=== PATIENT | female | born 1940 | race Asian ===

== ENCOUNTER 2019-03-04 19:46 | Emergency (ER) | payer MEDICARE, OTHER ==
[~2019-03-04] VITALS: Ht 165.1 cm; Wt 54.4 kg
--- OUTSIDE RECORDS SUMMARY | 2019-03-04 20:19 | XMS REPORT ---
Author Author BLANK JONES [facility] Address [address] [place] [address] Care Team Providers Care Paste Up Artist Name Role Phone BLANK JONES Unavailable PROBLEMS Type Condition ICD9-CM Code [id number] Code Onset Dates Condition Status SNOMED Code Problem Type 2 diabetes mellitus without complication, without long-term current use of insulin E11.9 Active [id number] ALLERGIES No Information ENCOUNTERS Encounter Location Date Diagnosis [facility] [address] [address] Aug, [facility] [address] [address] Aug, [facility] [address] [address] Aug, [facility] [address] [address] Aug, Type 2 diabetes mellitus without complication, without long- term current use of insulin E11.9 and Frequent UTI N39.0 [facility] [address] [address] Jul, Acute cystitis without hematuria N30.00 ; Acute confusion R41.0 and Type 2 diabetes mellitus without complication, without long-term current use of insulin E11.9 [facility] [address] [address] Jul, [facility] [address] [phone] Jul, [facility] [address] [id number] March, Dental examination Z01.20 [facility] [address] [facility] [id number] [place] [address] 07 Aug, 2016 Encounter for immunization Z23 IMMUNIZATIONS No Known Immunizations SOCIAL HISTORY Never Assessed REASON FOR VISIT DM eye exam PLAN OF CARE VITAL SIGNS MEDICATIONS Unknown Medications RESULTS No Results PROCEDURES No Known procedures INSTRUCTIONS MEDICATIONS ADMINISTERED No Known Medications MEDICAL (GENERAL) HISTORY Type Description Date Medical History diabetes II Surgical History appendectomy
--- OUTSIDE RECORDS SUMMARY | 2019-03-04 20:19 | XMS REPORT ---
Author Author BLANK JONES [facility] Address [address] [place] [address] Care Team Providers Care Anthropology And Archeology Instructor Name Role Phone BLANK JONES Unavailable PROBLEMS Type Condition ICD9-CM Code [id number] Code Onset Dates Condition Status SNOMED Code Problem Type 2 diabetes mellitus without complication, without long-term current use of insulin E11.9 Active [id number] ALLERGIES No Information ENCOUNTERS Encounter Location Date Diagnosis [facility] [address] [address] Aug, [facility] [address] [address] Aug, [facility] [address] [address] Aug, Type 2 diabetes mellitus without complication, without long- term current use of insulin E11.9 and Frequent UTI N39.0 [facility] [address] [place] [id number] [address] Jul, Acute cystitis without hematuria N30.00 ; Acute confusion R41.0 and Type 2 diabetes mellitus without complication, without long-term current use of insulin E11.9 [facility] [id number] [phone] Jul, [facility] [address] [address] Jul, [facility] [address] [id number] March, Dental examination Z01.20 [facility] [address] [address] Aug, Encounter for immunization Z23 IMMUNIZATIONS No Known Immunizations SOCIAL HISTORY Never Assessed REASON FOR VISIT PLAN OF CARE VITAL SIGNS MEDICATIONS Medication Instructions Dosage Frequency Start Date End Date Duration Status Macrobid 100 mg Orally every 12 hrs 1 capsule with food 12h Aug, Aug, 7 day(s) Active RESULTS No Results PROCEDURES No Known procedures INSTRUCTIONS MEDICATIONS ADMINISTERED No Known Medications MEDICAL (GENERAL) HISTORY Type Description Date Medical History diabetes II Surgical History appendectomy
--- OUTSIDE RECORDS SUMMARY | 2019-03-04 20:19 | XMS REPORT ---
Author Author BLANK JONES [facility] Address [address] [place] [address] Care Team Providers Care Storyboard Artist Name Role Phone BLANK JONES Unavailable PROBLEMS Type Condition ICD9-CM Code [id number] Code Onset Dates Condition Status SNOMED Code Problem Type 2 diabetes mellitus without complication, without long-term current use of insulin E11.9 Active [id number] ALLERGIES No Information ENCOUNTERS Encounter Location Date Diagnosis [facility] [address] [address] Aug, [facility] [address] [address] Aug, [facility] [address] [address] Aug, [facility] [address] [address] Aug, Type 2 diabetes mellitus without complication, without long- term current use of insulin E11.9 and Frequent UTI N39.0 [facility] [address] [address] Jul, Acute cystitis without hematuria N30.00 ; Acute confusion R41.0 and Type 2 diabetes mellitus without complication, without long-term current use of insulin E11.9 [facility] [address] [address] Jul, [facility] [address] [address] Jul, [facility] [address] [id number] March, Dental examination Z01.20 [facility] [address] [facility] [id number] [place] [address] 07 Aug, 2016 Encounter for immunization Z23 IMMUNIZATIONS No Known Immunizations SOCIAL HISTORY Never Assessed REASON FOR VISIT PLAN OF CARE VITAL SIGNS MEDICATIONS Unknown Medications RESULTS No Results PROCEDURES No Known procedures INSTRUCTIONS MEDICATIONS ADMINISTERED No Known Medications MEDICAL (GENERAL) HISTORY Type Description Date Medical History diabetes II Surgical History appendectomy
--- OUTSIDE RECORDS SUMMARY | 2019-03-04 20:20 | XMS REPORT ---
Author Author BLANK JONES [facility] Address [address] [place] [address] Care Team Providers Care Pewter Fabricator Name Role Phone BLANK JONES Unavailable PROBLEMS Type Condition ICD9-CM Code [id number] Code Onset Dates Condition Status SNOMED Code Problem Type 2 diabetes mellitus without complication, without long-term current use of insulin E11.9 Active [id number] ALLERGIES No Known Allergies ENCOUNTERS Encounter Location Date Diagnosis [facility] [address] [address] Aug, [facility] [address] [address] Aug, [facility] [address] [address] Aug, Type 2 diabetes mellitus without complication, without long- term current use of insulin E11.9 and Frequent UTI N39.0 [facility] [address] [id number] [place] [address] Jul, Acute cystitis without hematuria N30.00 ; Acute confusion R41.0 and Type 2 diabetes mellitus without complication, without long-term current use of insulin E11.9 [facility] [address] [id number] [place] [address] Jul, [facility] [address] [address] Jul, [facility] [address] [id number] March, Dental examination Z01.20 [facility] [address] [address] 07 Aug, 2016 Encounter for immunization Z23 IMMUNIZATIONS No Known Immunizations SOCIAL HISTORY Never Assessed REASON FOR VISIT DM- NILAY Negron, Needs A1C, Micro, Repeat UA PLAN OF CARE Activity Details Follow Up 3 Months Reason:DM VITAL SIGNS Height 60 in 2018-08-20 Weight 120.6 lbs 2018-08-20 Temperature 98.0 degrees Fahrenheit 2018-08-20 Heart Rate 87 bpm 2018-08-20 Respiratory Rate 18 2018-08-20 BMI 23.55 kg/m2 2018-08-20 Blood pressure systolic 112 mmHg 2018-08-20 Blood pressure diastolic 62 mmHg 2018-08-20 MEDICATIONS Medication Instructions Dosage Frequency Start Date End Date Duration Status Metformin HCl 500 mg Orally Once a day 1 tablet with a meal 24h 30 day(s) Active RESULTS No Results PROCEDURES Procedure Date Ordered Result Body Site GLYCATED HEMOGLOBIN TEST Aug 20, 2018 MICROALBUMIN, SEMIQUANT Aug 20, 2018 LAB NOT BILLED BY [facility] Aug 20, 2018 URINALYSIS, AUTO, W/O SCOPE Aug 20, 2018 [facility] VISIT ESTABLISHED PATIENT Aug 20, 2018 INSTRUCTIONS MEDICATIONS ADMINISTERED No Known Medications MEDICAL (GENERAL) HISTORY Type Description Date Medical History diabetes II Surgical History appendectomy
--- OUTSIDE RECORDS SUMMARY | 2019-03-04 20:20 | XMS REPORT ---
Author Author MARGAUX KHAN [facility] Address Unknown Care Team Providers Care Jar Filler Name Role Phone MARGAUX KHAN Unavailable PROBLEMS Unknown Problems ALLERGIES No Known Allergies SOCIAL HISTORY Never Assessed PLAN OF CARE Activity Details Follow Up prn Reason:Referal VITAL SIGNS Blood pressure systolic 133 mmHg 2017-04-02 Blood pressure diastolic 71 mmHg 2017-04-02 MEDICATIONS No Known Medications RESULTS No Results PROCEDURES Procedure Date Ordered Result Body Site LTD ORAL EVALUATION - PROBLEM FOCUS April 02, 2017 INTRAORL-PERIAPICAL 1 FILM [id number] April 02, 2017 IMMUNIZATIONS No Known Immunizations MEDICAL (GENERAL) HISTORY Type Description Date Medical History diabetes II
--- OUTSIDE RECORDS SUMMARY | 2019-03-04 20:20 | XMS REPORT ---
Author Author BLANK JONES [facility] Address [address] [place] [address] Care Team Providers Care Rn Bsn Name Role Phone BLANK JONES Unavailable PROBLEMS ALLERGIES No Known Allergies ENCOUNTERS IMMUNIZATIONS No Known Immunizations SOCIAL HISTORY No smoking Hx information available REASON FOR VISIT PLAN OF CARE VITAL SIGNS MEDICATIONS RESULTS No Results PROCEDURES INSTRUCTIONS MEDICATIONS ADMINISTERED No Known Medications MEDICAL (GENERAL) HISTORY
--- NOTE | 2019-03-04 20:57 | ED General ---
General Chief Complaint: General Problems/Pain Stated Complaint: FEVER Source of Information: Patient, Other Exam Limitations: Language Barrier (Slovak as a second language) History of Present Illness Date Seen by Provider: Mar 04, 2019 Time Seen by Provider: 20:40 Initial Comments The patient presents to the ER by private conveyance with her neighbor because she does not drive. Her chief complaint is that she is having cramps for the past 6 days intermittent in her lower extremities and she says they get worse when there cold weather. So she is been bundled up in her bed not moving for fear that the cramps would come on and they are debilitating. She says it is hard for her to do laundry Cook or clean because of the cramping in her legs. She's had these cramps for many many years and other than bundling up to stay warm when they come on she does not know what else to do. She has not seen her primary doctor but she has an appointment tomorrow at 1:00 in the afternoon to see Dr. Judd to discuss her cramps. She does not drink anderson dawood. She does have a history of diabetes but does not know about peripheral neuropathy. 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 She has cataracts but has not had surgery for this. She's not having any nausea fevers chills cough cold. She says she was out working in the yard about a week ago and she thinks that maybe she got too much cold and that is what brought this most recent bout of cramps on. Allergies and Home Medications Allergies Coded Allergies: No Known Drug Allergies (Unverified , 03/04/19) Patient Home Medication List Home Medication List Reviewed: Yes Review of Systems Review of Systems Constitutional: No chills, No diaphoresis, No fever, No malaise EENTM: No hearing loss, No ear pain Respiratory: No cough, No short of breath Cardiovascular: No chest pain, No edema Gastrointestinal: No abdominal pain, No constipation, No diarrhea, No nausea, No vomiting Genitourinary: No discharge; dysuria Musculoskeletal: No back pain, No joint pain; muscle cramps (lower extremities , intermittent and not presently) Skin: No pruritus, No rash Past Pnklarn-Edxuln-Ztovfe Hx Patient Social History Alcohol Use: Denies Use Recreational Drug Use: No Smoking Status: Never a Smoker Recent Foreign Travel: No Contact w/Someone Who Travel: No Physical Exam Vital Signs Vital Signs - First Documented 03/04/19 19:56 Temp 98.2 Pulse 95 Resp 16 B/P (MAP) 133/100 (111) Pulse Ox 97 O2 Delivery Room Air Capillary Refill : Height, Weight, BMI Height: '" Weight: lbs. oz. kg; BMI Method: General Appearance: No Apparent Distress, WD/WN Eyes: Bilateral Eye Normal Inspection, Bilateral Eye PERRL, Bilateral Eye EOMI HEENT: PERRL/EOMI, Pharynx Normal, Moist Mucous Membranes Neck: Full Range of Motion, Normal Inspection Respiratory: Lungs Clear, Normal Breath Sounds, No Accessory Muscle Use, No Respiratory Distress Cardiovascular: Regular Rate, Rhythm, No Edema, Normal Peripheral Pulses Gastrointestinal: Normal Bowel Sounds, Non Tender, Soft Extremity: Normal Capillary Refill, Normal Inspection, Non Tender, No Pedal Edema Neurologic/Psychiatric: Alert, Oriented x3, No Motor/Sensory Deficits Skin: Normal Color, Warm/Dry Progress/Results/Core Measures Suspected Sepsis SIRS Temperature: Pulse: Respiratory Rate: Laboratory Tests 03/04/19 20:18: White Blood Count 5.3 Blood Pressure / Mean: Laboratory Tests 03/04/19 20:18: Creatinine 0.95, Platelet Count 217, Total Bilirubin 1.5H Results/Orders Lab Results Laboratory Tests Test 03/04/19 20:18 03/04/19 21:00 Range/Units White Blood Count 5.3 4.3-11.0 10^3/uL Red Blood Count 4.23 L 4.35-5.85 10^6/uL Hemoglobin 12.3 11.5-16.0 G/DL Hematocrit 36 35-52 % Mean Corpuscular Volume 85 80-99 FL Mean Corpuscular Hemoglobin 29 25-34 PG Mean Corpuscular Hemoglobin Concent 34 32-36 G/DL Red Cell Distribution Width 13.3 10.0-14.5 % Platelet Count 217 130-400 10^3/uL Mean Platelet Volume 10.4 7.4-10.4 FL Neutrophils (%) (Auto) 57 42-75 % Lymphocytes (%) (Auto) 28 12-44 % Monocytes (%) (Auto) 13 H 0-12 % Eosinophils (%) (Auto) 1 0-10 % Basophils (%) (Auto) 1 0-10 % Neutrophils # (Auto) 3.0 1.8-7.8 X 10^3 Lymphocytes # (Auto) 1.5 1.0-4.0 X 10^3 Monocytes # (Auto) 0.7 0.0-1.0 X 10^3 Eosinophils # (Auto) 0.1 0.0-0.3 10^3/uL Basophils # (Auto) 0.0 0.0-0.1 10^3/uL Sodium Level 134 L 135-145 MMOL/L Potassium Level 3.9 3.6-5.0 MMOL/L Chloride Level 103 98-107 MMOL/L Carbon Dioxide Level 19 L 21-32 MMOL/L Anion Gap 12 5-14 MMOL/L Blood Urea Nitrogen 17 7-18 MG/DL Creatinine 0.95 0.60-1.30 MG/DL Estimat Glomerular Filtration Rate 57 BUN/Creatinine Ratio 18 Glucose Level 158 H 70-105 MG/DL Calcium Level 9.0 8.5-10.1 MG/DL Corrected Calcium 9.0 8.5-10.1 MG/DL Magnesium Level 2.2 1.8-2.4 MG/DL Total Bilirubin 1.5 H 0.1-1.0 MG/DL Aspartate Amino Transf (AST/SGOT) 9 5-34 U/L Alanine Aminotransferase (ALT/SGPT) 9 0-55 U/L Alkaline Phosphatase 56 40-136 U/L C-Reactive Protein High Sensitivity 0.06 0.00-0.50 MG/DL Total Protein 6.3 L 6.4-8.2 GM/DL Albumin 4.0 3.2-4.5 GM/DL Urine Color YELLOW Urine Clarity CLEAR Urine pH 6 5-9 Urine Specific [place] 1.015 L 1.016-1.022 Urine Protein NEGATIVE NEGATIVE Urine Glucose (UA) NEGATIVE NEGATIVE Urine Ketones NEGATIVE NEGATIVE Urine Nitrite NEGATIVE NEGATIVE Urine Bilirubin NEGATIVE NEGATIVE Urine Urobilinogen NORMAL NORMAL MG/DL Urine Leukocyte Esterase NEGATIVE NEGATIVE Urine RBC (Auto) NEGATIVE NEGATIVE Urine RBC NONE /HPF Urine WBC 0-2 /HPF Urine Squamous Epithelial Cells 0-2 /HPF Urine Crystals NONE /LPF Urine Bacteria NEGATIVE /HPF Urine Casts NONE /LPF Urine Mucus NEGATIVE /LPF Urine Culture Indicated NO My Orders Orders - REMY RUIZ Cbc With Automated Diff (03/04/19 20:53) Comprehensive Metabolic Panel (03/04/19 20:53) Hs C Reactive Protein (03/04/19 20:53) Magnesium (03/04/19 20:53) Ua Culture If Indicated (03/04/19 20:53) Vital Signs/I&O 03/04/19 19:56 Temp 98.2 Pulse 95 Resp 16 B/P (MAP) 133/100 (111) Pulse Ox 97 O2 Delivery Room Air Capillary Refill : Progress Note : Time: 21:54 Progress Note No evidence of electrolyte disturbances. However he recommends some sugar-free anderson dawood at night and we'll give her some Robaxin with caution for its hypnotic effects. She has an appointment to follow-up with Dr. Judd tomorrow. Departure Impression Primary Impression: Muscle spasm of both lower legs Disposition: 01 HOME, SELF-CARE Condition: Stable Departure-Patient Inst. Decision time for Depature: 21:56 Referrals: RACHEL JUDD MD (PCP/Family) Primary Care Physician Patient Instructions: Muscle Spasms (DC) Add. Discharge Instructions: For muscle spasms you can drink a glass of diet anderson dawood at night before going to bed. You can use heat. If your spasms become severe you can use the Robaxin every 6 hours as needed but will cause drowsiness and you should be cautious until you see how it affects you. Keep your follow-up appointment with your primary care doctor tomorrow. All discharge instructions reviewed with patient and/or family. Voiced understanding. Scripts Methocarbamol (Robaxin) 500 Mg Tablet 1-2 TAB PO Q6H PRN for SPASMS, #30 TAB 0 Refills Prov: REMY RUIZ 03/04/19 Copy Copies To 1: RACHEL JUDD MD, TITUS J Mar 04, 2019 20:57
[2019-03-04 20:59] LABS: BASOPHILS % (AUTO) 1 % (0-10); EOSINOPHILS # (AUTO) 0.1 10^3/uL (0.0-0.3); EOSINOPHILS % (AUTO) 1 % (0-10); HEMATOCRIT 36 % (35-52); HEMOGLOBIN 12.3 G/DL (11.5-16.0); LYMPHOCYTES # (AUTO) 1.5 X 10^3 (1.0-4.0); LYMPHOCYTES % (AUTO) 28 % (12-44); MEAN CORPUSCULAR HEMOGLOBIN 29 PG (25-34); MEAN CORPUSCULAR HGB CONC 34 G/DL (32-36); MEAN CORPUSCULAR VOLUME 85 FL (80-99); MEAN PLATELET VOLUME 10.4 FL (7.4-10.4); MONOCYTES # (AUTO) 0.7 X 10^3 (0.0-1.0); MONOCYTES % (AUTO) 13 % (0-12); NEUTROPHILS % (AUTO) 57 % (42-75); PLATELET COUNT 217 10^3/uL (130-400); RED CELL DISTRIBUTION WIDTH 13.3 % (10.0-14.5); WHITE BLOOD COUNT 5.3 10^3/uL (4.3-11.0)
[2019-03-04 21:06] LABS: BILIRUBIN,URINE NEGATIVE (NEGATIVE); CLARITY,URINE CLEAR; COLOR,URINE YELLOW; GLUCOSE, URINE (UA) NEGATIVE (NEGATIVE); KETONES,URINE NEGATIVE (NEGATIVE); LEUKOCYTE ESTERASE ,URINE NEGATIVE (NEGATIVE); NITRITE,URINE NEGATIVE (NEGATIVE); PH,URINE 6 (5-9); PROTEIN,URINE NEGATIVE (NEGATIVE); UROBILINOGEN,URINE NORMAL (NORMAL)
[2019-03-04 21:11] LABS: BILIRUBIN,TOTAL 1.5 MG/DL (0.1-1.0); CREATININE SERUM 0.95 MG/DL (0.60-1.30); MAGNESIUM 2.2 MG/DL (1.8-2.4); POTASSIUM 3.9 MMOL/L (3.6-5.0); TOTAL PROTEIN 6.3 GM/DL (6.4-8.2)
[2019-03-04 21:14] LABS: BACTERIA,URINE NEGATIVE /HPF; SQUAMOUS EPITHELIAL CELL,UR 0-2 /HPF; WBC,URINE 0-2 /HPF
[2019-03-04] MEDS ORDERED: METH500T PO (22:03)
[2019-03-04] MEDS ORDERED: CYCLOBENZAPRINE 10 MG (FLEXERIL) TAB PO SCH (22:15)
[2019-03-04 22:19] VITALS: BP 103/70
== END 2019-03-04 22:20 | disposition home or self-care (01) ==
LOC: ER 19:48
DX: M62.838 Other muscle spasm (principal)
CPT/HCPCS: 36415; 80053; 81000; 83735; 85025; 86141

== ENCOUNTER 2022-06-13 11:52 | Emergency (ER) | payer MEDICARE ==
[~2022-06-13] VITALS: Ht 158 cm; Wt 48.5 kg
[~2022-06-13 11:52] MED LIST: METH500T PO
--- NOTE | 2022-06-13 12:33 | ED Abdominal Pain ---
General Stated Complaint: ABD MASS Source of Information: Patient Exam Limitations: Language Barrier History of Present Illness Date Seen by Provider: Jun 13, 2022 Time Seen by Provider: 12:32 Initial Comments Patient is an 81-year-old Samoan female who presents to the emergency department at the direction of her primary care provider at [facility] clinic with bhavesh mc for abdominal aortic aneurysm. The patient states that she went to the clinic today for routine refill of her diabetes medications. She has had some mild flank pain/back pain. She denies nausea, vomiting. She states that she has "digestive issues" and that her bowels do not function like she feels like they should. She denies black or bloody stool. No problems with urination. No recent febrile illnesses. No chest pain or shortness of breath. She is awake, alert, oriented, answering questions with the help of the video resident care associate. On examination she has a very prominent abdominal aortic pulsation. It does not seem to be tender. Her vital signs are currently stable. All other review of systems with the help of the video resident care associate reviewed and negative except as stated. Associated Symptoms: Back Pain (mild low back discomfort) Allergies and Home Medications Allergies Coded Allergies: No Known Drug Allergies (Unverified , 03/04/19) Patient Home Medication List Home Medication List Reviewed: Yes Methocarbamol (Robaxin) 500 Mg Tablet, 1-2 TAB PO Q6H PRN for SPASMS Prescribed by: REMY RUIZ on 03/04/192202 Review of Systems Review of Systems Constitutional: see HPI EENTM: No Symptoms Reported Respiratory: No Symptoms Reported Cardiovascular: No Symptoms Reported Gastrointestinal: Denies Nausea; Other ("heart beat in abdomen"; "digestive issues") Genitourinary: No Symptoms Reported Musculoskeletal: back pain (mild (points to left flank)) Skin: no symptoms reported Psychiatric/Neurological: No Symptoms Reported All Other Systems Reviewed Negative Unless Noted: Yes Past Ohalvex-Qferql-Lrfsah Hx Seasonal Allergies Seasonal Allergies: No Past Medical History Surgeries: No Respiratory: No Cardiac: No Neurological: No Genitourinary: No Gastrointestinal: No Musculoskeletal: No Endocrine: Yes Diabetes, Non-Insulin dep HEENT: No Cancer: No Psychosocial: No Integumentary: No Blood Disorders: No Physical Exam Vital Signs Vital Signs - First Documented 06/13/22 12:30 Pulse 75 Resp 12 B/P (MAP) 123/60 (81) Pulse Ox 98 O2 Delivery Room Air Capillary Refill : Height/Weight/BMI Height: 5'5.00" Weight: 120lbs. oz. 54.170902pr; BMI Method:Stated General Appearance: no apparent distress, thin HEENT: PERRL/EOMI Respiratory: lungs clear, normal breath sounds, no respiratory distress, no accessory muscle use Cardiovascular: regular rate, rhythm Gastrointestinal: soft, mass (pulsatile mid abdominal mass) Extremities: normal range of motion, non-tender, normal inspection, no pedal edema, no calf tenderness, normal capillary refill Neurologic/Psychiatric: alert, normal mood/affect, oriented x 3 Skin: normal color, warm/dry Progress/Results/Core Measures Results/Orders Lab Results Laboratory Tests Test 06/13/22 13:01 06/13/22 13:10 Range/Units Urine Color YELLOW Urine Clarity CLEAR Urine pH 5.5 5-9 Urine Specific [place] 1.020 1.016-1.022 Urine Protein NEGATIVE NEGATIVE Urine Glucose (UA) 3+ H NEGATIVE Urine Ketones NEGATIVE NEGATIVE Urine Nitrite NEGATIVE NEGATIVE Urine Bilirubin NEGATIVE NEGATIVE Urine Urobilinogen 0.2 < = 1.0 MG/DL Urine Leukocyte Esterase NEGATIVE NEGATIVE Urine RBC (Auto) NEGATIVE NEGATIVE Urine RBC RARE /HPF Urine WBC 0-2 /HPF Urine Squamous Epithelial Cells RARE /HPF Urine Crystals NONE /LPF Urine Bacteria NEGATIVE /HPF Urine Casts NONE /LPF Urine Mucus NEGATIVE /LPF Urine Culture Indicated NO White Blood Count 4.8 4.3-11.0 10^3/uL Red Blood Count 4.63 3.80-5.11 10^6/uL Hemoglobin 13.4 11.5-16.0 g/dL Hematocrit 41 35-52 % Mean Corpuscular Volume 89 80-99 fL Mean Corpuscular Hemoglobin 29 25-34 pg Mean Corpuscular Hemoglobin Concent 32 32-36 g/dL Red Cell Distribution Width 13.2 10.0-14.5 % Platelet Count 229 130-400 10^3/uL Mean Platelet Volume 9.4 9.0-12.2 fL Immature Granulocyte % (Auto) 0 % Neutrophils (%) (Auto) 66 42-75 % Lymphocytes (%) (Auto) 21 12-44 % Monocytes (%) (Auto) 11 0-12 % Eosinophils (%) (Auto) 2 0-10 % Basophils (%) (Auto) 1 0-10 % Neutrophils # (Auto) 3.2 1.8-7.8 10^3/uL Lymphocytes # (Auto) 1.0 1.0-4.0 10^3/uL Monocytes # (Auto) 0.5 0.0-1.0 10^3/uL Eosinophils # (Auto) 0.1 0.0-0.3 10^3/uL Basophils # (Auto) 0.0 0.0-0.1 10^3/uL Immature Granulocyte # (Auto) 0.0 0.0-0.1 10^3/uL Sodium Level 140 135-145 MMOL/L Potassium Level 4.0 3.6-5.0 MMOL/L Chloride Level 106 98-107 MMOL/L Carbon Dioxide Level 25 21-32 MMOL/L Anion Gap 9 5-14 MMOL/L Blood Urea Nitrogen 24 H 7-18 MG/DL Creatinine 0.81 0.60-1.30 MG/DL Estimat Glomerular Filtration Rate 73 BUN/Creatinine Ratio 30 Glucose Level 206 H 70-105 MG/DL Calcium Level 8.9 8.5-10.1 MG/DL Corrected Calcium 9.0 8.5-10.1 MG/DL Total Bilirubin 1.1 H 0.1-1.0 MG/DL Aspartate Amino Transf (AST/SGOT) 19 5-34 U/L Alanine Aminotransferase (ALT/SGPT) 26 0-55 U/L Alkaline Phosphatase 53 40-136 U/L Total Protein 6.4 6.4-8.2 GM/DL Albumin 3.9 3.2-4.5 GM/DL Lipase 20 8-78 U/L My Orders Orders - HAYDEN MANCERA MD Ed Iv/Invasive Line Start (06/13/22 12:28) Cbc With Automated Diff (06/13/22 12:28) Comprehensive Metabolic Panel (06/13/22 12:28) Lipase (06/13/22 12:28) Ua Culture If Indicated (06/13/22 12:28) Ct Angio Abdomen W (06/13/22 13:37) Iohexol Injection (Omnipaque 350 Mg/Ml 1 (06/13/22 13:45) Received Contrast (Hold Metformin- Contr (06/13/22 13:45) Ns (Ivpb) (Sodium Chloride 0.9% Ivpb Bag (06/13/22 13:45) Medications Given in ED Current Medications Medications Dose Ordered Sig/Berhane Route Start Time Stop Time Status Last Admin Dose Admin Iohexol 100 ml ONCE ONCE IV 06/13/22 13:45 06/13/22 13:46 DC 06/13/22 13:50 85 ML Sodium Chloride 100 ml ONCE ONCE IV 06/13/22 13:45 06/13/22 13:46 DC 06/13/22 13:50 80 ML Vital Signs/I&O 06/13/22 12:30 Pulse 75 Resp 12 B/P (MAP) 123/60 (81) Pulse Ox 98 O2 Delivery Room Air Progress Progress Note : Time: 14:40 Progress Note Patient has been comfortable throughout her ED visit. CT was done and shows a 3.3 x 3.8 cm infrarenal abdominal aortic aneurysm that extends to about 5 cm in length. No evidence of rupture or dissection. She will need follow-up with cardiovascular surgery/cardiology for possible treatment of this at some point. Will defer to her primary care doctor for referral. She has no complaints currently of any issues that would require further evaluation or management. We will use the video resident care associate line again to communicate all of this with her. I will recommend that she follow-up with Dr. Sanches's office at the first of next week in order to direct her to the appropriate service for following her aneurysm. Diagnostic Imaging Diagonstic Imaging: CT Comments [facility], [place] NAME: KARISSA MCALLISTER [facility] REC#: [id number] PT STATUS: REG ER : 1940 PHYSICIAN: HAYDEN MANCERA MD ADMIT DATE: 06/13/22/ER Draft Date of Exam:06/13/22 CT ANGIO ABDOMEN W PROCEDURE: CT angiography of the abdomen with and without contrast. TECHNIQUE: Multiple contiguous axial images were obtained through the abdomen and pelvis after administration of intravenous contrast. 3D MIP reconstructions were made. Auto Exposure Controls were utilized during the CT exam to meet ALARA standards for radiation dose reduction. INDICATION: Pulsatile mass of the abdomen. COMPARISON: None. FINDINGS: Included portions of the lung bases show partially visualized ground-glass micronodule in the anterolateral margins of the left lower lobe. It measures 4-5 mm in diameter (image 1, series 2). CTA ABDOMEN: There is moderate diffuse calcified and noncalcified aortic atherosclerosis. Additionally, there is aneurysmal dilatation of the infrarenal abdominal aorta. At its widest, the abdominal aorta measures 3.3 x 3.8 cm in axial dimension. Aneurysm extends approximately 5.5 cm in length. By NASCET criteria, there is no focal significant stenosis. There is no evidence of dissection. Bulky calcifications are noted at the origins of the celiac trunk and superior mesenteric arteries. There is, however, no focal significant stenosis. Single renal arteries are identified bilaterally. Bulky calcified atherosclerosis is also noted at the origin of the renal arteries, but these do not appear to be hemodynamically significant. Included small bowel loops are nondistended. Normal appendix cannot be adequately identified, but there is no pericecal inflammation. Included portions of the colon show a few distal diverticula, but no CT evidence of acute diverticulitis. The kidneys, adrenal glands, spleen, pancreas, and liver have a normal CT appearance. There is no loculated fluid collection, free fluid, or free air within the abdomen. No abnormal mesenteric or retroperitoneal adenopathy is seen. Osseous structures show no acute abnormalities. IMPRESSION: 1. Patient's pulsatile abdominal mass likely corresponds to infrarenal abdominal aortic aneurysm as described above. 2. Otherwise, no acute abnormalities are seen within the abdomen. 3. Partially visualized ground-glass micronodule of the left lower lobe. Further characterization with dedicated CT of the chest is recommended and could be performed on a nonemergent basis. Dictated on workstation # [id number] Dict: 06/13/22 1412 Trans: 06/13/22 1423 [id number] Interpreted by: PAUL NELSON MD Electronically signed by: Departure Impression Primary Impression: Diabetes Qualified Codes: E11.9 - Type 2 diabetes mellitus without complications Additional Impression: Abdominal aortic aneurysm (AAA) 3.0 cm to 5.0 cm in diameter in female Disposition: 01 HOME, SELF-CARE Condition: Stable Departure-Patient Inst. Decision time for Depature: 14:42 Referrals: ROLANDA SANCHES MD (PCP/Family) Primary Care Physician Patient Instructions: Abdominal Aortic Aneurysm, Diabetes in Older Adults Add. Discharge Instructions: You need to have close follow-up with your primary care doctor to follow the enlarged blood vessel in your abdomen. You will need imaging every 6 months and treatment by a heart doctor or heart surgeon. If you develop severe abdominal pain that radiates into your back or into your legs please come back to the emergency room immediately for reevaluation. Go over to Dr. Sanches's clinic early next week to talk about your follow-up with a heart doctor or heart surgeon. Copy Copies To 1: ROLANDA SANCHES MD, KATHRYN M MD Jun 13, 2022 12:33
[2022-06-13 13:07] LABS: BILIRUBIN,URINE NEGATIVE (NEGATIVE); CLARITY,URINE CLEAR; COLOR,URINE YELLOW; GLUCOSE, URINE (UA) 3+ (NEGATIVE); KETONES,URINE NEGATIVE (NEGATIVE); LEUKOCYTE ESTERASE ,URINE NEGATIVE (NEGATIVE); NITRITE,URINE NEGATIVE (NEGATIVE); PH,URINE 5.5 (5-9); PROTEIN,URINE NEGATIVE (NEGATIVE)
[2022-06-13 13:19] LABS: BASOPHILS % (AUTO) 1 % (0-10); EOSINOPHILS # (AUTO) 0.1 10^3/uL (0.0-0.3); EOSINOPHILS % (AUTO) 2 % (0-10); HEMATOCRIT 41 % (35-52); HEMOGLOBIN 13.4 g/dL (11.5-16.0); LYMPHOCYTES % (AUTO) 21 % (12-44); MEAN CORPUSCULAR HEMOGLOBIN 29 pg (25-34); MEAN CORPUSCULAR HGB CONC 32 g/dL (32-36); MEAN CORPUSCULAR VOLUME 89 fL (80-99); MEAN PLATELET VOLUME 9.4 fL (9.0-12.2); MONOCYTES # (AUTO) 0.5 10^3/uL (0.0-1.0); MONOCYTES % (AUTO) 11 % (0-12); NEUTROPHILS # (AUTO) 3.2 10^3/uL (1.8-7.8); NEUTROPHILS % (AUTO) 66 % (42-75); PLATELET COUNT 229 10^3/uL (130-400); WHITE BLOOD COUNT 4.8 10^3/uL (4.3-11.0)
[2022-06-13 13:28] LABS: ALBUMIN 3.9 GM/DL (3.2-4.5)
[2022-06-13 13:30] LABS: CALCIUM 8.9 MG/DL (8.5-10.1)
[2022-06-13 13:31] LABS: TOTAL PROTEIN 6.4 GM/DL (6.4-8.2)
[2022-06-13 13:33] LABS: BILIRUBIN,TOTAL 1.1 MG/DL (0.1-1.0)
[2022-06-13 13:34] LABS: CREATININE SERUM 0.81 MG/DL (0.60-1.30)
[2022-06-13 13:41] LABS: BACTERIA,URINE NEGATIVE /HPF; RBC,URINE RARE /HPF; SQUAMOUS EPITHELIAL CELL,UR RARE /HPF; WBC,URINE 0-2 /HPF
[2022-06-13] MEDS ORDERED: HOLD METFORMIN - RECEIVED CONTRAST 20 ML VIAL IV SCH (13:45)
[2022-06-13] MEDS ORDERED: IOHEXOL 350 MG/ML 100 ML (OMNIPAQUE 350) VIAL IV ONE (13:45)
[2022-06-13] MEDS ORDERED: NS 100 ML (IVPB) BAG IV ONE (13:45)
--- NOTE | 2022-06-13 14:24 | Diagnostic Imaging Report ---
PROCEDURE: CT angiography of the abdomen with and without contrast. TECHNIQUE: Multiple contiguous axial images were obtained through the abdomen and pelvis after administration of intravenous contrast. 3D MIP reconstructions were made. Auto Exposure Controls were utilized during the CT exam to meet ALARA standards for radiation dose reduction. INDICATION: Pulsatile mass of the abdomen. COMPARISON: None. FINDINGS: Included portions of the lung bases show partially visualized ground-glass micronodule in the anterolateral margins of the left lower lobe. It measures 4-5 mm in diameter (image 1, series 2). CTA ABDOMEN: There is moderate diffuse calcified and noncalcified aortic atherosclerosis. Additionally, there is aneurysmal dilatation of the infrarenal abdominal aorta. At its widest, the abdominal aorta measures 3.3 x 3.8 cm in axial dimension. Aneurysm extends approximately 5.5 cm in length. By NASCET criteria, there is no focal significant stenosis. There is no evidence of dissection. Bulky calcifications are noted at the origins of the celiac trunk and superior mesenteric arteries. There is, however, no focal significant stenosis. Single renal arteries are identified bilaterally. Bulky calcified atherosclerosis is also noted at the origin of the renal arteries, but these do not appear to be hemodynamically significant. Included small bowel loops are nondistended. Normal appendix cannot be adequately identified, but there is no pericecal inflammation. Included portions of the colon show a few distal diverticula, but no CT evidence of acute diverticulitis. The kidneys, adrenal glands, spleen, pancreas, and liver have a normal CT appearance. There is no loculated fluid collection, free fluid, or free air within the abdomen. No abnormal mesenteric or retroperitoneal adenopathy is seen. Osseous structures show no acute abnormalities. IMPRESSION: 1. Patient's pulsatile abdominal mass likely corresponds to infrarenal abdominal aortic aneurysm as described above. 2. Otherwise, no acute abnormalities are seen within the abdomen. 3. Partially visualized ground-glass micronodule of the left lower lobe. Further characterization with dedicated CT of the chest is recommended and could be performed on a nonemergent basis. Dictated by: Dictated on workstation # [id number]
[2022-06-13 15:11] VITALS: BP 117/61
== END 2022-06-13 15:15 | disposition home or self-care (01) ==
LOC: EDUNIT# 11:52 → ER 11:54
DX: I71.4 Abdominal aortic aneurysm, without rupture (principal); E11.9 Type 2 diabetes mellitus without complications; Z79.899 Other long term (current) drug therapy; Z28.311 Partially vaccinated for COVID-19
CPT/HCPCS: 36415; 74175; 80053; 81000; 83690; 85025

== ENCOUNTER 2022-08-10 18:57 | Emergency (ER) | payer MEDICARE ==
[2022-08-10 18:59] VITALS: BP 138/84
--- NOTE | 2022-08-10 19:33 | ED General ---
General Chief Complaint: Bite-Animal/Human/Insect Stated Complaint: STUNG BY WASP Nursing Triage Note: TO ED [facility] TO TRIAGE ROOM. PT STATES SHE WAS STUNG BY A WASP TO LEFT CHEEK, LEFT NECK, AND RIGHT HAND. STATES SHE PUT A "CREAM" ON SITES. DENIES SOA. NO TONGUE SWELLING NOTED. Source of Information: Patient Exam Limitations: No Limitations History of Present Illness Date Seen by Provider: Aug 10, 2022 Time Seen by Provider: 19:20 Initial Comments Patient is a 81 yo F who presents to the ED via EMS after being stung in the left cheek, left neck, and right hand by a wasp. She states she is having some headache and is worried "the poison is spreading in her blood." She denies any difficulty breathing, difficulty swallowing, itching, rash, or vomiting. She states she put some cream on the stings and this has seemed to help. Timing/Duration: 1 Hour Severity: Mild Allergies and Home Medications Allergies Coded Allergies: No Known Drug Allergies (Unverified , 03/04/19) Patient Home Medication List Home Medication List Reviewed: Yes Methocarbamol (Robaxin) 500 Mg Tablet, 1-2 TAB PO Q6H PRN for SPASMS Prescribed by: REMY RUIZ on 03/04/192202 Review of Systems Review of Systems Constitutional: no symptoms reported EENTM: no symptoms reported Respiratory: no symptoms reported Cardiovascular: no symptoms reported Gastrointestinal: no symptoms reported Genitourinary: no symptoms reported Musculoskeletal: no symptoms reported Skin: no symptoms reported, other (wasp stings) Psychiatric/Neurological: Headache Past Nceoxjn-Vjxncp-Izsdtn Hx Immunizations Up To Date 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 oz. 54.647198vy; 19.00 BMI Method:Stated General Appearance: No Apparent Distress, WD/WN HEENT: PERRL/EOMI, TMs Normal, Normal ENT Inspection, Pharynx Normal Neck: Full Range of Motion, Normal Inspection, Non Tender, Supple, Carotid Bruit Respiratory: Chest Non Tender, Lungs Clear, Normal Breath Sounds, No Accessory Muscle Use, No Respiratory Distress Cardiovascular: Regular Rate, Rhythm, No Edema, No Gallop, No JVD, No Murmur, Normal Peripheral Pulses Gastrointestinal: Normal Bowel Sounds, No Organomegaly, No Pulsatile Mass, Non Tender, Soft Extremity: Normal Capillary Refill, Normal Inspection, Normal Range of Motion, Non Tender, No Calf Tenderness, No Pedal Edema Neurologic/Psychiatric: Alert, Oriented x3, No Motor/Sensory Deficits, Normal Mood/Affect Skin: Other (areas of localized swelling/redness noted to the right hand, left neck, and left cheek; no flucutance/induration noted) Progress/Results/Core Measures Suspected Sepsis SIRS Temperature: Pulse: 79 Respiratory Rate: 16 Blood Pressure 138 /84 Mean: 102 Results/Orders Vital Signs/I&O 08/10/22 18:59 Temp 36.6 Pulse 79 Resp 16 B/P (MAP) 138/84 (102) Pulse Ox 98 O2 Delivery Room Air Capillary Refill : Less Than 3 Seconds Blood Pressure Mean: 102 Progress Note : Progress Note Patient is nontoxic and well hydrated on exam. The areas of concern are c/w local inflammation from a sting. No indication of any allergic reaction or anaphylaxis. Pt was given ibuprofen for headache and will be discharged home with rx for topical hydrocortisone. Follow-up with PCP for persistent symptoms. Return precautions for urgent symptomology discussed. Patient verbalized understanding. Departure Impression Primary Impression: Wasp sting Qualified Codes: T63.461A - Toxic effect of venom of wasps, accidental (unintentional), initial encounter Disposition: 01 HOME, SELF-CARE Condition: Stable Departure-Patient Inst. Decision time for Depature: 19:20 Referrals: ROLANDA SANCHES MD (PCP/Family) Primary Care Physician Patient Instructions: Insect Bites and Stings ED Scripts Hydrocortisone/Aloe Vera (Hydrocortisone Plus 1% Cream) 1 % Cream..g. 28.4 GM TP BID PRN for ITCHING for 10 Days, #1 EA Prov: JONNY FRITZ OUTPATIENT SURGERY RN 08/10/22 JONNY FRITZ APRN Aug 10, 2022 19:32
[2022-08-10] MEDS ORDERED: HYDR28.480 TP (19:34)
== END 2022-08-10 19:36 | disposition home or self-care (01) ==
LOC: EDUNIT# 18:57 → ER 18:59
DX: T63.461A Toxic effect of venom of wasps, accidental (unintentional), initial encounter (principal); Z28.311 Partially vaccinated for COVID-19
CPT/HCPCS: 99283

== ENCOUNTER → 2022-12-18 | Outpatient (CLI) | payer MEDICARE ==
[~2022-12-18] MED LIST changes: +HYDR28.480 TP
== END ==
LOC: CARD 14:30
PROVIDERS: ATTEND Internal Medicine Cardiovascular Disease
DX: I35.1 Nonrheumatic aortic (valve) insufficiency (principal); I10 Essential (primary) hypertension; I25.10 Atherosclerotic heart disease of native coronary artery without angina pectoris
CPT/HCPCS: 93306

== ENCOUNTER → 2023-04-10 | Outpatient (CLI) | payer MEDICARE ==
[~2023-04-10] MED LIST changes: +CATHETER FLUSH 10 ML SYR IVP PRN
[2023-04-10 13:42] VITALS: BP 160/65
[2023-04-10 13:44] VITALS: BP 136/63
--- NOTE | 2023-04-10 15:12 | Cardiology Stress Test Report ---
Stress Test Report Date of Procedure/Referring: Date of Procedure: April 10, 2023 PCP Rolanda Sanches MD Admitting Physician Admitting Physician: Attending Physician: Kath Manriquez MD Baseline Heart Rate: 67 Baseline Blood Pressure: Blood Pressure Systolic: 136 Blood Pressure Diastolic: 63 Vital Signs Date Time Temp Pulse Resp B/P (MAP) Pulse Ox O2 Delivery O2 Flow Rate FiO2 04/10/23 13:42 87 160/65 (96) 04/10/23 13:44 17 Room Air Baseline Vital Signs Vital Signs Date Time Temp Pulse Resp B/P (MAP) Pulse Ox O2 Delivery O2 Flow Rate FiO2 04/10/23 13:42 87 160/65 (96) 04/10/23 13:44 17 Room Air Baseline EKG: Baseline EKG: NSR Summary: After explaining the procedure and details to the patient, she signed the consent and was brought to the stress nuclear laboratory. Patient exercised on standard Stan protocol, EKG, heart rate and blood pressure were monitored continuously, resting and stress doses of radio tracer were injected, imaging was acquired and reviewed in the short axis, horizontal long axis and vertical long axis views Patient was able to exercise for a total of 3 minutes on Stan protocol, METs 4.6 Maximum heart rate 128 Maximum blood pressure 160/65 Stress EKG, Minimal nondiagnostic changes Recovery EKG, Return to baseline TID: 1.06 SSS: 1 SDS: 1 EF: 83 Conclusion: Fair exercise tolerance for 3 minutes on standard Stan protocol, 4.6 METS achieving 92% of maximal expected heart rate Nondiagnostic EKG changes with exercise return to baseline during recovery Appropriate heart rate and blood pressure response to exercise return to baseline during recovery No ischemia or infarction noted on SPECT images Normal left ventricular size, ejection fraction 83% Copy Copies To 1: ROLANDA SANCHES MD Copies To 2: [facility]/KATH FOSTER MD April 10, 2023 15:11
== END ==
LOC: CARD 12:00
PROVIDERS: ATTEND Internal Medicine Cardiovascular Disease
DX: I10 Essential (primary) hypertension (principal); I25.10 Atherosclerotic heart disease of native coronary artery without angina pectoris
CPT/HCPCS: 78452; 93017; A9502